=== PATIENT | male | born 1980 | race Caucasian/White ===

== ENCOUNTER 2019-11-12 11:03 | Emergency (ER) | payer MEDICARE ==
[~2019-11-12] VITALS: Ht 167.6 cm; Wt 18.0 kg
[2019-11-12 11:12] VITALS: BP 119/79
--- NOTE | 2019-11-12 11:33 | NUR ---
states, i think i got bit by a centipede, or a sea horse on right arm.
== END 2019-11-12 12:23 | disposition home or self-care (01) ==
LOC: ER 11:03
DX: R44.3 Hallucinations, unspecified (principal); F15.10 Other stimulant abuse, uncomplicated; G89.29 Other chronic pain; Z59.0 Homelessness
CPT/HCPCS: 99281

== ENCOUNTER 2019-11-14 00:28 | Emergency (ER) | payer MEDICARE ==
[~2019-11-14] VITALS: Ht 167.6 cm; Wt 68.0 kg
--- NOTE | 2019-11-14 01:15 | NUR ---
pt states "the mission needs to spray , i have been bitten by centipeds on both his feet and they are multipling in my feet and legs. "no s/s of point of entry or centipeded on the patient at this time .
[2019-11-14 02:44] VITALS: BP 118/77
== END 2019-11-14 02:37 | disposition home or self-care (01) ==
LOC: ER 00:28
DX: Z00.00 Encounter for general adult medical examination without abnormal findings (principal); G89.29 Other chronic pain; F10.99 Alcohol use, unspecified with unspecified alcohol-induced disorder; F15.90 Other stimulant use, unspecified, uncomplicated; Z59.0 Homelessness; Y90.9 Presence of alcohol in blood, level not specified
CPT/HCPCS: 99281

== ENCOUNTER 2024-05-01 15:06 | Emergency (ER) | payer MEDICARE, OTHER ==
[~2024-05-01] VITALS: Ht 165.1 cm; Wt 49.8 kg
[2024-05-01 15:57] VITALS: BP 116/70; PULSE 110; RESP 18; TEMP 97.4; O2SAT 98
[2024-05-01] MEDS ORDERED: SULF1TAB49 PO (16:47)
[2024-05-01] MEDS ORDERED: CEPH-585 PO (16:47)
== END 2024-05-01 17:32 | disposition home or self-care (01) ==
LOC: ER 15:07
DX: L03.116 Cellulitis of left lower limb (principal); L03.115 Cellulitis of right lower limb; G89.29 Other chronic pain; M54.9 Dorsalgia, unspecified; F10.90 Alcohol use, unspecified, uncomplicated; F15.90 Other stimulant use, unspecified, uncomplicated; Z79.899 Other long term (current) drug therapy; Z79.2 Long term (current) use of antibiotics; Z59.00 Homelessness unspecified
CPT/HCPCS: 99283; A6223; J7030; A6258; A6446; A6449